=== PATIENT | female | born 1960 | race Caucasian/White ===

== ENCOUNTER 2022-11-28 13:45 | Inpatient (IN) | payer BC ==
[~2022-11-28] VITALS: Ht 165.1 cm; Wt 84.8 kg
[2022-11-28 13:47] VITALS: BP 140/84
--- NOTE | 2022-11-28 13:47 | NUR ---
PT BIBA TO BED 12
--- NOTE | 2022-11-28 14:04 | NUR ---
MD LEONARDO AT BEDSIDE FOR EVALUATION
[2022-11-28] MEDS ORDERED: KETOROLAC 30 MG/ML VIAL IVP ONE (14:10)
[2022-11-28 14:22] LABS: APPEARANCE,URINE CLEAR (CLEAR); BILIRUBIN,URINE NEGATIVE (NEGATIVE); BLOOD, URINE NEGATIVE (NEGATIVE); COLOR,URINE YELLOW (YELLOW); LEUKOCYTE ESTERASE ,URINE NEGATIVE (NEGATIVE); NITRITE, URINE NEGATIVE (NEGATIVE); UGLUCOSE 3+ (NEGATIVE)
[2022-11-28 14:35] LABS: MEAN CORPUSCULAR HGB CONC 34 g/dL (33-37)
[2022-11-28 14:38] LABS: BASOPHILS # (AUTO) 0.1 K/uL (0.00-0.22); BASOPHILS % (AUTO) 0.6 % (0.0-2.0); EOSINOPHILS # (AUTO) 0.3 K/uL (0-0.4); EOSINOPHILS % (AUTO) 2.2 % (0.0-4.0); HEMATOCRIT 45.8 % (36-48); HEMOGLOBIN 15.4 g/dL (12.0-16.0); LYMPHOCYTES # (AUTO) 1.6 K/uL (2.5-16.5); LYMPHOCYTES % (AUTO) 10.7 % (20.5-51.1); MEAN CORPUSCULAR HEMOGLOBIN 30 pg (27-31); MEAN CORPUSCULAR VOLUME 90.1 fL (80-94); MONOCYTES # (AUTO) 0.9 K/uL (0.8-1.0); MONOCYTES % (AUTO) 6.5 % (1.7-9.3); NEUTROPHILS # (AUTO) 11.7 K/uL (1.8-7.7); PLATELET COUNT (AUTO) 189 K/uL (140-450); RED BLOOD CELL COUNT(AUTO) 5.08 MIL/uL (4.20-5.40); RED CELL DISTRIBUTION WIDTH 13.7 % (11.6-13.7); WHITE BLOOD COUNT (AUTO) 14.6 K/uL (4.8-10.8)
[2022-11-28] MEDS ORDERED: DULA0.75 SUBQ (14:50)
[2022-11-28] MEDS ORDERED: POTA10TA PO (14:50)
[2022-11-28] MEDS ORDERED: INSU100S22 SUBQ (14:50)
[2022-11-28] MEDS ORDERED: METF-713 PO (14:50)
[2022-11-28] MEDS ORDERED: CARV3.122 PO (14:50)
[2022-11-28] MEDS ORDERED: GLIP10TA12 PO (14:50)
[2022-11-28] MEDS ORDERED: FURO40TA9 PO (14:50)
[2022-11-28] MEDS ORDERED: EMPA25TA PO (14:50)
[2022-11-28] MEDS ORDERED: LOSA50TA57 PO (14:50)
[2022-11-28] MEDS ORDERED: SACU1TAB PO (14:50)
[2022-11-28 14:51] LABS: ALBUMIN 4.1 g/dL (3.4-5.0); CARBON DIOXIDE 29.2 mmol/L (21-32); POTASSIUM 4.2 mmol/L (3.5-5.1); TOTAL BILIRUBIN 0.6 mg/dL (0.0-1.0)
[2022-11-28] MEDS ORDERED: ONDANSETRON 4 MG/2 ML VIAL IVP PRN (16:50)
[2022-11-28] MEDS ORDERED: HYDROcodone/APAP 5/325 MG 1 TAB TAB PO PRN (16:50)
--- NOTE | 2022-11-28 17:23 | NUR ---
MD MENDOZA AT BEDSIDE FOR EVALUATION
--- NOTE | 2022-11-28 17:42 | NUR ---
Patient will be admitted to care of MD MENDOZA. Admited to M/S. Will go to room 104A. Belongings list completed. Report to HE GONZALEZ .
--- NOTE | 2022-11-28 18:00 | NUR ---
RECEIVED PT FROM ER VIA [facility] BUT WALKED TO BED. ORIENTED HER TO THE NEW ROOM. PT IS STABLE.
--- NOTE | 2022-11-28 18:17 | NUR ---
The patient's care was reviewed and supervised by [place] 05 ANNETTE, RN.
--- NOTE | 2022-11-28 19:32 | NUR ---
ENDORSED PT TO CRACKING STILL OPERATOR NURSE FOR ADMISSION AND CONTINUITY OF CARE. PT IS STABLE. CALL LIGHT WITHIN REACH.
--- NOTE | 2022-11-28 19:35 | NUR ---
RECEIVED PATIENT FROM AM NURSE FOR CONTINUITY OF CARE. PATIENT IS ALERT ORIENTED X4, NO COMPLAIN OF PAIN AT THIS TIME.
--- NOTE | 2022-11-28 20:00 | NUR ---
BLOOD GLUCOSE IS 208. NOTIFIED MD OF THE RESULT. MD CHANGE GLUCOSE MONITORING TO Q4HRS INSTEAD OF Q2H AND ALSO TO CONTINUE WITH CARVEDILOL, FUROSEMIDE AND LOSARTAN
[2022-11-28] MEDS ORDERED: DEXTROSE 50% 50 ML SYR IVP PRN (21:35)
[2022-11-28] MEDS ORDERED: INSULIN LISPRO SLIDING SCALE 100 UNITS/ML VIAL SUBQ PRN (21:35)
[2022-11-29] VITALS: BP 124/66
--- NOTE | 2022-11-29 | NUR ---
BLOOD GLUCOSE 114, NO COVERAGE NEEDED
[2022-11-29] MEDS: HYDROcodone/APAP 5/325 MG 1 TAB TAB PO PRN ×2 (03:32→17:11)
[2022-11-29 04:00] VITALS: BP 119/68
[2022-11-29] MEDS: BLOOD GLUCOSE MONITORING 1 DEV DEV FS SCH ×7 (04:00→23:59)
--- NOTE | 2022-11-29 07:05 | NUR ---
RECEIVED REPORT FROM LAUNDRY HOUSEKEEPER NURSE FOR CONTINUITY OF CARE. PT STABLE AT THIS TIME.
[2022-11-29 07:09] LABS: BASOPHILS % (AUTO) 0.4 % (0.0-2.0); EOSINOPHILS # (AUTO) 0.2 K/uL (0-0.4); EOSINOPHILS % (AUTO) 2.1 % (0.0-4.0); HEMATOCRIT 42.5 % (36-48); HEMOGLOBIN 14.3 g/dL (12.0-16.0); LYMPHOCYTES % (AUTO) 19.4 % (20.5-51.1); MEAN CORPUSCULAR HEMOGLOBIN 30 pg (27-31); MEAN CORPUSCULAR HGB CONC 34 g/dL (33-37); MEAN CORPUSCULAR VOLUME 90.4 fL (80-94); MONOCYTES # (AUTO) 1.1 K/uL (0.8-1.0); MONOCYTES % (AUTO) 10.3 % (1.7-9.3); NEUTROPHILS # (AUTO) 7.1 K/uL (1.8-7.7); NEUTROPHILS % (AUTO) 67.8 % (42.2-75.2); PLATELET COUNT (AUTO) 186 K/uL (140-450); RED CELL DISTRIBUTION WIDTH 14.1 % (11.6-13.7); WHITE BLOOD COUNT (AUTO) 10.5 K/uL (4.8-10.8)
--- NOTE | 2022-11-29 07:15 | NUR ---
ENDORSED PATIENT TO AM NURSE FOR CONTINUITY OF CARE. PT IS STABLE
[2022-11-29 07:23] LABS: ANION GAP 12.8 (8-16); CARBON DIOXIDE 29.5 mmol/L (21-32); CREATININE 1.1 mg/dL (0.6-1.3); POTASSIUM 5.3 mmol/L (3.5-5.1)
[2022-11-29 08:00] VITALS: BP 113/60
[2022-11-29] MEDS: FUROSEMIDE 40 MG TAB PO SCH (09:03)
[2022-11-29] MEDS: LOSARTAN 50 MG TAB PO SCH (09:03)
[2022-11-29] MEDS: carvediloL 3.125 MG TAB PO SCH ×2 (09:03→20:25)
[2022-11-29] MEDS: ENOXAPARIN 40 MG/0.4 ML SYR SUBQ SCH (09:06)
[2022-11-29] MEDS ORDERED: SODIUM ZIRCONIUM CYCLOSILICATE 10 GM POWD.PACK PO SCH (09:30)
[2022-11-29 12:00] VITALS: BP 107/62
[2022-11-29 16:00] VITALS: BP 113/57
--- NOTE | 2022-11-29 19:18 | NUR ---
ENDORSED PT TO GRANULAR OPERATOR NURSE FOR CONTINUITY OF CARE. PT STABLE AT THIS TIME.
--- NOTE | 2022-11-29 19:20 | NUR ---
RECEIVED PT FROM AM NURSE FOR CONTINUITY OF CARE. PT IS STABLE
[2022-11-29 20:00] VITALS: BP 117/62
[2022-11-30] VITALS: BP 110/61
[2022-11-30 04:00] VITALS: BP 130/69
[2022-11-30] MEDS: BLOOD GLUCOSE MONITORING 1 DEV DEV FS SCH ×3 (04:00→11:57)
[2022-11-30 07:03] LABS: BASOPHILS # (AUTO) 0.1 K/uL (0.00-0.22); BASOPHILS % (AUTO) 0.7 % (0.0-2.0); EOSINOPHILS # (AUTO) 0.3 K/uL (0-0.4); EOSINOPHILS % (AUTO) 3.4 % (0.0-4.0); HEMATOCRIT 40.5 % (36-48); HEMOGLOBIN 13.7 g/dL (12.0-16.0); LYMPHOCYTES # (AUTO) 1.8 K/uL (2.5-16.5); LYMPHOCYTES % (AUTO) 19.8 % (20.5-51.1); MEAN CORPUSCULAR HEMOGLOBIN 31 pg (27-31); MEAN CORPUSCULAR HGB CONC 34 g/dL (33-37); MEAN CORPUSCULAR VOLUME 89.8 fL (80-94); MONOCYTES # (AUTO) 0.9 K/uL (0.8-1.0); MONOCYTES % (AUTO) 9.7 % (1.7-9.3); NEUTROPHILS # (AUTO) 6.1 K/uL (1.8-7.7); NEUTROPHILS % (AUTO) 66.4 % (42.2-75.2); PLATELET COUNT (AUTO) 167 K/uL (140-450); RED CELL DISTRIBUTION WIDTH 13.7 % (11.6-13.7); WHITE BLOOD COUNT (AUTO) 9.2 K/uL (4.8-10.8)
--- NOTE | 2022-11-30 07:10 | NUR ---
RECEIVED REPORT FROM INSURANCE AGENCY OWNER NURSE FOR CONTINUITY OF CARE. PT STABLE AT THIS TIME.
--- NOTE | 2022-11-30 07:10 | NUR ---
endorsed patient to am nurse for continuity of care. pt is stable
[2022-11-30 07:27] LABS: ANION GAP 13.1 (8-16); CARBON DIOXIDE 28.5 mmol/L (21-32); POTASSIUM 4.6 mmol/L (3.5-5.1)
[2022-11-30 08:00] VITALS: BP 139/73
[2022-11-30] MEDS: LOSARTAN 50 MG TAB PO SCH (08:38)
[2022-11-30] MEDS: FUROSEMIDE 40 MG TAB PO SCH (08:38)
[2022-11-30] MEDS: HYDROcodone/APAP 5/325 MG 1 TAB TAB PO PRN (08:38)
[2022-11-30] MEDS: carvediloL 3.125 MG TAB PO SCH (08:39)
[2022-11-30] MEDS: ENOXAPARIN 40 MG/0.4 ML SYR SUBQ SCH (08:55)
--- NOTE | 2022-11-30 09:00 | NUR ---
PATIENT HAS BEEN SCREENED AND CATEGORIZED MODERATE NUTRITION RISK. PATIENT WILL BE SEEN WITHIN 3-5 DAYS OF ADMISSION. 11/28/22-12/03/[address]
[2022-11-30 13:45] VITALS: BP 139/73
== END 2022-11-30 14:27 | disposition home or self-care (01) | DRG 637 ==
LOC: MED 13:45 → MMU 16:49 → MTU 17:30
PROVIDERS: ADMIT Internal Medicine; ATTEND Internal Medicine
DX: E11.649 Type 2 diabetes mellitus with hypoglycemia without coma (principal); G93.41 Metabolic encephalopathy; I50.22 Chronic systolic (congestive) heart failure; E87.5 Hyperkalemia; Z20.822 Contact with and (suspected) exposure to COVID-19; T38.3X5A Adverse effect of insulin and oral hypoglycemic [antidiabetic] drugs, initial encounter; I25.10 Atherosclerotic heart disease of native coronary artery without angina pectoris; I11.0 Hypertensive heart disease with heart failure; Y92.89 Other specified places as the place of occurrence of the external cause
CPT/HCPCS: 36415; 71045; 80048; 80053; 81003; 82948; 83605; 83735; 83880; 84484; 85025; 87040; 87081; 87086; 93005; 96374; 99285; J1650; J1885

== ENCOUNTER 2023-04-01 21:27 | Emergency (ER) | payer BC, MEDICAID ==
[~2023-04-01] VITALS: Ht 170.2 cm; Wt 108.9 kg
[2023-04-01 21:27] VITALS: BP 0/0; PULSE 0; RESP 14
[~2023-04-01 21:27] MED LIST: CARV3.122 PO; DULA0.75 SUBQ; EMPA25TA PO; FURO40TA9 PO; INSU100S22 SUBQ; LOSA50TA57 PO; METF-713 PO; POTA10TA PO; SACU1TAB PO
== END 2023-04-01 21:37 ==
LOC: MED 21:27
DX: I46.9 Cardiac arrest, cause unspecified (principal)
CPT/HCPCS: 31500; 92950; 99291